=== PATIENT | female | born 1945 | race Caucasian/White ===

== ENCOUNTER 2016-10-20 08:33 | Inpatient (IN) ==
[2016-10-20] MEDS ORDERED: *HR* HYDROcodone/Acet 5/325 mg TABLET PO PRN (16:51)
[2016-10-20] MEDS: *HR* Enoxaparin 30 MG/0.3 ML SYRINGE SQ SCH (18:00)
[2016-10-20] MEDS: *HR* HYDROcodone/Acet 5/325 mg TABLET PO PRN (18:04)
[2016-10-21] MEDS: *HR* HYDROcodone/Acet 5/325 mg TABLET PO PRN ×6 (00:05→21:19)
[2016-10-21] MEDS ORDERED: *HR* HYDROcodone/Acet 5/325 mg TABLET PO PRN (04:13)
[2016-10-21 05:08] LABS: Basophils % 0.3 %; Eosinophils % 0.3 %; Immature Granulocytes % 0.6 % (0-4); Lymphocytes # 0.9 K/mcL (0.6-4.6); Lymphocytes % 14.3 %; Mean Corpuscular HGB Conc 35.7 g/dL (31.6-35.5); Mean Corpuscular Hemoglobin 31.7 pg (28.0-33.3); Mean Corpuscular Volume 88.9 fL (83.0-100.0); Mean Platelet Volume 10.5 fL (9.4-12.4); Monocytes # 0.7 K/mcL (0.0-1.3); Monocytes % 10.6 %; Neutrophils # 4.8 K/mcL (1.6-8.9); Platelet Count 119 K/mcL (140-400); Red Blood Count 3.15 M/mcL (3.82-4.97); Red Cell Distribution Width 13.6 % (11.5-14.5); Segmented Neutrophils % 73.9 %
[2016-10-21 05:10] LABS: Prothrombin Time 11.1 Seconds (9.4-12.1)
[2016-10-21 05:13] LABS: Activated Partial Thrombo Time 29.2 Seconds (26.0-36.0)
[2016-10-21 05:19] LABS: BUN/Creatinine Ratio 25 (6-26); Blood Urea Nitrogen 20 mg/dL (7-20); Calcium 8.9 mg/dL (8.6-10.8); Carbon Dioxide 27 mEq/L (19-29); Chloride 99 mEq/L (98-109); Glucose 106 mg/dL (70-99); Osmolality,Calculated 287 (280-300); Potassium 3.2 mEq/L (3.5-4.5); Sodium 137 mEq/L (136-145); eGFR For African Americans > 60 (> 60); eGFR For Non-African Americans > 60 (> 60)
[2016-10-21] MEDS: *HR* Enoxaparin 30 MG/0.3 ML SYRINGE SQ SCH ×2 (05:57→17:05)
--- NOTE | 2016-10-21 09:18 | Internal Med History&Physical ---
Date of Encounter: 10/21/16 Time of Encounter: 09:16 Assessment and Plan (1) Status post total knee replacement, left Current visit: Yes Status: Acute Still having significant postop pain. We will give an extra dose of Dilaudid 1 mg IM. PT and OT to work on gait. Transfer. Endurance. (2) Hypertension Current visit: Yes Status: Chronic Qualifiers: Hypertension type: unspecified secondary hypertension Qualified Code(s): I15.9 - Secondary hypertension, unspecified; I15 - Secondary hypertension Internal Medicine - H&P: HPI History of present illness: Ms. Sánchez is a 71 year old female admitted to this facility status post left total knee replacement. She has had constant pain for 6 months on the left knee. She has been relying on Vicodin every 3-4 for pain relief and was wearing a knee brace. She had an uneventful surgery. Today's examination she complains of significant postop pain. She denies any shortness of breath no chest pain. No nausea. No vomiting. Past Med Surg Social Fam HX - Past Medical History Medical history: hyperlipidemia, hypertension, TIA Psychiatric history: no psych history - Social History Smoking Status: Unknown if ever smoked Smokeless Tobacco Status: No Alcohol use: rarely Drug use: none Internal Medicine - H&P: Meds Enoxaparin [Lovenox] 30 mg SQ BID #10 syringe 10/18/16 [Rx] Lisinopril/Hydrochlorothiazide [Zestoretic 20-25 mg Tablet] 1 each PO DAILY [History] Simvastatin [Zocor] 40 mg PO HS 10/18/16 [History] Warfarin [Coumadin] 2.5 mg PO Q48H 10/18/16 [History] Warfarin [Coumadin] 5 mg PO Q48H 10/18/16 [History] HYDROcodone/Acet 5/325 mg [[place] 5-325 mg] 1 - 2 tab PO Q6H PRN #40 tablet 10/19 [Rx] Allergies Sulfa (Sulfonamide Antibiotics) Allergy (Verified 10/19/16 02:39) Rash egg Adverse Reaction (Verified 10/18/16 07:33) Vomiting Oxycodone [From Percocet] Adverse Reaction (Verified 10/20/16 17:58) Nausea All Systems PM: A 10-system review of systems was performed and is negative for pertinent findings except as documented above in the HPI. - Constitutional Constitutional: no chills, no fever(s), no night sweats - Cardiovascular Cardiovascular ROS IM: no chest pain, no diaphoresis, no dyspnea, no lightheadedness, no palpitations, no syncope - Respiratory Respiratory: no cough, no dyspnea, no wheezing, no excessive phlegm production - Gastrointestinal Gastrointestinal: no abdominal pain, no diarrhea, no hematemesis, no hematochezia, no melena, no nausea, no vomiting - Musculoskeletal Musculoskeletal ROS IM: arthralgias, joint swelling - Integumentary Integumentary IM: no rash, no unusual bruising - Constitutional Vitals: Temp Pulse Resp BP Pulse Ox 97.9 F 81 20 108/72 95 10/21/16 06:54 10/21/16 06:54 10/21/16 06:54 10/21/16 06:54 10/21/16 06:54 General appearance: Present: mild distress, A&O X 3, pleasant - Respiratory Respiratory exam: Present: CTAB. Absent: accessory muscle use, rales, rhonchi, wheezes - Cardiovascular Cardiovascular exam: Present: RRR, +S1, +S2. Absent: diastolic murmur, gallop, rubs, systolic murmur - GI/Abdominal GI/Abdominal exam: Present: normal bowel sounds, soft, no peritoneal signs. Absent: distended, tenderness - Expanded Lower Extremities Exam Knee exam: Present: ecchymosis, swelling, tenderness Internal Med - H&P Results - Labs CBC & Chem 7: 10/21/16 05:00 10/21/16 05:00 Labs: Short CBC 10/21/16 Range/Units 05:00 WBC 6.5 (4.3-11.1) K/mcL Hgb 10.0 L (11.5-15.4) g/dL Hct 28.0 L (35.3-44.9) % Plt Count 119 L (140-400) K/mcL Neutrophils # 4.8 (1.6-8.9) K/mcL BMP 10/21/16 05:00 Sodium 137 Potassium 3.2 L Chloride 99 Carbon Dioxide 27 BUN 20 Creatinine 0.81 Glucose 106 H Calcium 8.9
[2016-10-21] MEDS ORDERED: *HR* LORazepam 1 MG TABLET PO ONE (09:21)
[2016-10-21] MEDS ORDERED: Ketorolac 60 MG/2 ML VIAL IM ONE (09:21)
[2016-10-21] MEDS: *HR* Warfarin 2.5 MG TABLET PO SCH (17:05)
[2016-10-22] MEDS: *HR* HYDROcodone/Acet 5/325 mg TABLET PO PRN ×5 (01:24→19:59)
[2016-10-22] MEDS: *HR* Enoxaparin 30 MG/0.3 ML SYRINGE SQ SCH ×2 (05:42→17:50)
[2016-10-22] MEDS: *HR* Warfarin 5 MG TABLET PO SCH (17:50)
[2016-10-22] MEDS ORDERED: Ketorolac 60 MG/2 ML VIAL IM ONE (20:27)
[2016-10-22] MEDS ORDERED: *HR* LORazepam 1 MG TABLET PO ONE (20:29)
[2016-10-23] MEDS: *HR* HYDROcodone/Acet 5/325 mg TABLET PO PRN ×3 (01:40→10:23)
[2016-10-23 05:22] LABS: INR 1.1; Prothrombin Time 11.7 Seconds (9.4-12.1)
[2016-10-23] MEDS: *HR* Enoxaparin 30 MG/0.3 ML SYRINGE SQ SCH ×2 (06:40→18:22)
[2016-10-23 08:22] LABS: Basophils % 0.5 %; Eosinophils # 0.1 K/mcL (0.0-0.6); Eosinophils % 1.6 %; Hematocrit 26.5 % (35.3-44.9); Hemoglobin 9.4 g/dL (11.5-15.4); Immature Granulocytes % 0.9 % (0-4); Lymphocytes # 1.4 K/mcL (0.6-4.6); Lymphocytes % 24.3 %; Mean Corpuscular HGB Conc 35.5 g/dL (31.6-35.5); Mean Corpuscular Hemoglobin 31.9 pg (28.0-33.3); Mean Corpuscular Volume 89.8 fL (83.0-100.0); Mean Platelet Volume 10.4 fL (9.4-12.4); Monocytes # 0.5 K/mcL (0.0-1.3); Monocytes % 9.7 %; Neutrophils # 3.5 K/mcL (1.6-8.9); Platelet Count 171 K/mcL (140-400); Red Blood Count 2.95 M/mcL (3.82-4.97); Red Cell Distribution Width 13.6 % (11.5-14.5)
[2016-10-23 08:50] LABS: BUN/Creatinine Ratio 26 (6-26); Blood Urea Nitrogen 26 mg/dL (7-20); Calcium 8.9 mg/dL (8.6-10.8); Carbon Dioxide 28 mEq/L (19-29); Chloride 98 mEq/L (98-109); Glucose 107 mg/dL (70-99); Osmolality,Calculated 291 (280-300); Potassium 3.2 mEq/L (3.5-4.5); Sodium 138 mEq/L (136-145); eGFR For African Americans > 60 (> 60); eGFR For Non-African Americans 54 (> 60)
[2016-10-23] MEDS ORDERED: *HR* HYDROcodone/Acet 10/325 mg TABLET PO ONE (10:46)
--- NOTE | 2016-10-23 11:32 | Internal Med Progress Note ---
Date of Encounter: 10/23/16 Time of Encounter: 11:30 - Assessment and plan (1) Status post total knee replacement, left Current Visit: Yes Status: Acute Assessment and plan: Still having significant postop pain. Will increase pain medication. PTOT to work on improving gait, transfer safety. (2) Hypertension Current Visit: Yes Status: Chronic Qualifiers: Hypertension type: unspecified secondary hypertension Qualified Code(s): I15.9 - Secondary hypertension, unspecified; I15 - Secondary hypertension - Subjective Interval history: Still having significant postop knee pain. No shortness of breath. No chest pain. She takes 7.5 mg of [place] at home. She has been getting 5 mg. No fever. - Constitutional Vitals: Temp Pulse Resp BP Pulse Ox 97.6 F 65 18 115/74 95 10/23/16 06:53 10/23/16 09:20 10/23/16 09:20 10/23/16 09:20 10/23/16 09:20 General appearance: Present: mild distress, A&O X 3, pleasant - Respiratory Respiratory exam: Present: CTAB. Absent: accessory muscle use, rales, rhonchi, wheezes - Cardiovascular Cardiovascular exam: Present: RRR, +S1, +S2. Absent: diastolic murmur, gallop, rubs, systolic murmur - GI/Abdominal GI/Abdominal exam: Present: normal bowel sounds, soft, no peritoneal signs. Absent: distended, tenderness - Expanded Lower Extremities Exam Knee exam: Present: swelling - [place]ison Incision: Present: clean and dry Internal Medicine: Result - Labs CBC & Chem 7: 10/23/16 08:05 10/23/16 08:05 Labs: Short CBC 10/23/16 Range/Units 08:05 WBC 5.6 (4.3-11.1) K/mcL Hgb 9.4 L (11.5-15.4) g/dL Hct 26.5 L (35.3-44.9) % Plt Count 171 (140-400) K/mcL Neutrophils # 3.5 (1.6-8.9) K/mcL BMP 10/23/16 08:05 Sodium 138 Potassium 3.2 L Chloride 98 Carbon Dioxide 28 BUN 26 H Creatinine 1.01 Glucose 107 H Calcium 8.9 - ABG Interpretation ABG results: PT/INR, D-dimer PT 11.7 Seconds (9.4-12.1) 10/23/16 04:45 Consult Discharge Plan - Plan Referrals: NO,PCP [Primary Care Provider] -
[2016-10-23] MEDS: Ondansetron ODT 4 MG TAB.RAPDIS SL PRN (11:42)
[2016-10-23] MEDS: *HR* HYDROcodone/Acet 10/325 mg TABLET PO PRN ×2 (14:28→18:21)
[2016-10-23] MEDS: *HR* Warfarin 2.5 MG TABLET PO SCH (18:22)
[2016-10-24] MEDS: *HR* HYDROcodone/Acet 10/325 mg TABLET PO PRN ×2 (01:50→08:31)
[2016-10-24] MEDS: *HR* Enoxaparin 30 MG/0.3 ML SYRINGE SQ SCH ×2 (05:34→17:05)
[2016-10-24 05:49] LABS: INR 1.3
[2016-10-24] MEDS: Ondansetron ODT 4 MG TAB.RAPDIS SL PRN ×2 (08:11→11:14)
--- NOTE | 2016-10-24 09:30 | Internal Med Progress Note ---
Date of Encounter: 10/24/16 Time of Encounter: 09:29 - Assessment and plan (1) Status post total knee replacement, left Current Visit: Yes Status: Acute Assessment and plan: Still having significant postop pain. Will increase pain medication. PTOT to work on improving gait, transfer safety. (2) Hypertension Current Visit: Yes Status: Chronic Qualifiers: Hypertension type: unspecified secondary hypertension Qualified Code(s): I15.9 - Secondary hypertension, unspecified; I15 - Secondary hypertension - Time Spent With Patient less than 15 minutes - Subjective Interval history: Left knee postoperative pain better since pain meds increased.. No shortness of breath. No chest pain. She takes 7.5 mg of [place] at home. No fever. - Constitutional Vitals: Temp Pulse Resp BP Pulse Ox 98.1 F 77 18 112/57 96 10/24/16 08:40 10/24/16 08:40 10/24/16 08:40 10/24/16 08:40 10/24/16 08:40 General appearance: Present: mild distress, A&O X 3, pleasant - Respiratory Respiratory exam: Present: CTAB. Absent: accessory muscle use, rales, rhonchi, wheezes - Cardiovascular Cardiovascular exam: Present: RRR, +S1, +S2. Absent: diastolic murmur, gallop, rubs, systolic murmur - GI/Abdominal GI/Abdominal exam: Present: normal bowel sounds, soft, no peritoneal signs. Absent: distended, tenderness - Expanded Lower Extremities Exam Knee exam: Present: swelling, tenderness Internal Medicine: Result - Labs CBC & Chem 7: 10/23/16 08:05 10/23/16 08:05 - ABG Interpretation ABG results: PT/INR, D-dimer PT 14.0 Seconds (9.4-12.1) H 10/24/16 05:05 Consult Discharge Plan - Plan Referrals: NO,PCP [Primary Care Provider] -
[2016-10-24] MEDS ORDERED: 0.9 % Sodium Chloride 1,000 ML IVC ONE (12:47)
[2016-10-24] MEDS ORDERED: Metoclopramide 10 MG/2 ML VIAL IVP ONE (12:48)
[2016-10-24] MEDS ORDERED: Ketorolac 60 MG/2 ML VIAL IM ONE (13:49)
[2016-10-24] MEDS: *HR* Warfarin 5 MG TABLET PO SCH (17:05)
[2016-10-25] MEDS: *HR* HYDROcodone/Acet 10/325 mg TABLET PO PRN ×2 (01:15→09:10)
[2016-10-25] MEDS: *HR* Enoxaparin 30 MG/0.3 ML SYRINGE SQ SCH (05:28)
[2016-10-25 06:33] LABS: INR 1.7; Prothrombin Time 18.6 Seconds (9.4-12.1)
[2016-10-25 07:50] VITALS: BP 122/74
--- NOTE | 2016-10-25 13:47 | Discharge Summary ---
Date of Encounter: 10/25/16 Time of Encounter: 13:43 - Discharge Diagnosis (1) Arthritis of left knee Priority: Primary Status: Chronic Comments: Patient this is the cause why she had surgery for left total knee replacement. The knee dressing looks good is clean and dry. (2) Status post total knee replacement, left Priority: Primary Status: Acute Comments: Again the knee dressings clean and dry. I advise patient to stay but she is refusing. is stable. She is 12 degrees and 76 degrees. She needs better extension and flexion. She is refusing to stay we will do outpatient here. - Discharge Medications Home Medications: Enoxaparin [Lovenox] 30 mg SQ BID #10 syringe 10/18/16 [Rx] Lisinopril/Hydrochlorothiazide [Zestoretic 20-25 mg Tablet] 1 each PO DAILY [History] Simvastatin [Zocor] 40 mg PO HS 10/18/16 [History] Warfarin [Coumadin] 2.5 mg PO Q48H 10/18/16 [History] Warfarin [Coumadin] 5 mg PO Q48H 10/18/16 [History] HYDROcodone/Acet 5/325 mg [[place] 5-325 mg] 1 - 2 tab PO Q6H PRN #40 tablet 10/19 [Rx] Allergies/Adverse Reactions: Allergies Sulfa (Sulfonamide Antibiotics) Allergy (Verified 10/19/16 02:39) Rash egg Adverse Reaction (Verified 10/18/16 07:33) Vomiting Oxycodone [From Percocet] Adverse Reaction (Verified 10/20/16 17:58) Nausea Date of admission: 10/20/16 16:20 Primary care physician: PCP NO Consults: 10/20/16 17:26 Consult to Occupational Therapy [CONS] Routine Comment: evaluate and treat Reason for Consult: left total knee replacement Consult to Physical Therapy [CONS] Routine Comment: eval ant treat Reason for Consult: left knee replacement Consult to Recreational Therapy [CONS] Routine Comment: Consult to Bioinformatics Software Engineer [CONS] Routine Reason for SW Consult: discharge planning Discharging clinician: Hay Rey Anticipated date of discharge: 10/25/16 - Patient Status Disposition: Home, Self-Care Condition: Good Functional capacity at discharge: uses cane/walker Overall status at discharge: patient is progressing back to baseline - Discharge Instructions Follow Up With: NO,PCP [Primary Care Provider] - - Diet and Activity Activity: ambulate only with your walker Diet: advance to your usual diet Interval History: History of brought in postop doing well. She is limited goal between 12 and 76 degrees flexion extension. This concerns me but she is refusing this day. She will stay off 5 days of Lovenox and continue on her Coumadin which should be therapeutic. She will start her outpatient here on 77 Hospital course: Ms. Sánchez is a 71 year old female See above - Time Spent with Patient Total time spent providing and/or coordinating discharge services: Less than 30 minutes - Constitutional Vitals: Temp Pulse Resp BP Pulse Ox 98 F 79 16 122/74 96 10/25/16 07:49 10/25/16 07:49 10/25/16 07:49 10/25/16 07:49 10/25/16 07:49 General appearance: Present: mild distress, A&O X 3, pleasant - Head Head exam: Present: atraumatic, normal inspection, normocephalic - Neck Neck exam general surgery: Present: supple, trachea midline. Absent: lymphadenopathy - Respiratory Respiratory exam: Present: CTAB. Absent: accessory muscle use, rales, rhonchi, wheezes - Cardiovascular Cardiovascular exam: Present: RRR, +S1, +S2. Absent: diastolic murmur, gallop, rubs, systolic murmur
== END 2016-10-25 14:40 | disposition home or self-care (01) | DRG 561 ==
LOC: INPGRE 16:20
PROVIDERS: ADMIT Internal Medicine; ATTEND Internal Medicine